=== PATIENT | male | born 1980 | race Caucasian/White ===

== ENCOUNTER 2024-06-06 10:34 | Emergency (ER) | payer OTHER ==
[2024-06-06 11:31] VITALS: RESP 18; BMI 34.0
[2024-06-06] MEDS ORDERED: MAG HYDROX/AL HYDROX/SIMETH 30 ML UNIT-DOSE CUP ONE (11:52)
[2024-06-06] MEDS ORDERED: FAMOTIDINE 20 MG TABLET ONE (11:52)
[2024-06-06] MEDS: FAMOTIDINE 20 MG TABLET PO ONE (12:09)
[2024-06-06] MEDS: MAG HYDROX/AL HYDROX/SIMETH 30 ML UNIT-DOSE CUP PO ONE (12:09)
[2024-06-06 12:27] LABS: BASO % 0.6 % (0-2.0); HEMATOCRIT 47.3 % (35.4-49); HEMOGLOBIN 16.4 GM/dL (11.7-16.9); MCH 30.6 pg (25.7-33.7); MCHC 34.7 g/dl (32.0-35.9); MEAN CELL VOLUME 88.1 fl (80-96); MEAN PLT VOLUME 10.4 fl (7.5-11.1); NEUT % 76.4 % (42.8-82.8); PLATELET COUNT 193 10^3/uL (134-434); RBC 5.37 M/mm3 (4.00-5.60); RDW 13.9 % (11.9-15.9); WHITE BLOOD COUNT 9.5 K/mm3 (4.0-10.0)
[2024-06-06 12:44] LABS: CHLORIDE 102 mmol/L (98-107); POTASSIUM 4.6 mmol/L (3.5-5.1); SODIUM 140 mmol/L (136-145)
[2024-06-06 12:46] LABS: CALCIUM 10.1 mg/dL (8.5-10.1)
[2024-06-06 12:47] LABS: ALBUMIN 4.7 g/dl (3.4-5.0); ANION GAP 13 mmol/L (4-13); BLOOD UREA NITROGEN 13.7 mg/dL (7-18); CO2 26 mmol/L (21-32); MAGNESIUM 2.2 mg/dL (1.8-2.4)
[2024-06-06 12:50] LABS: GLUCOSE,RANDOM 434 mg/dL (74-106); SGOT/AST 23 U/L (15-37); SGPT/ALT 64 U/L (13-61)
[2024-06-06 12:51] LABS: BILIRUBIN,TOTAL 1.4 mg/dL (0.2-1)
[2024-06-06 12:54] LABS: ALK PHOS 131 U/L (45-117)
[2024-06-06 13:42] LABS: HIV INTERPRETATION NEGATIVE (NEGATIVE)
[2024-06-06 13:58] LABS: VENOUS BASE EXCESS -2.8 mmol/L (-2-2); VENOUS O2 SATURATION 69.9 % (70-80); VENOUS PCO2 41.4 mmHg (38-52); VENOUS PH 7.355 (7.310-7.410)
[2024-06-06] MEDS: SODIUM CHLORIDE 0.9% 500 ML INFUS.BAG IV ONE (14:46)
[2024-06-06 15:50] VITALS: BP 128/84; PULSE 87; TEMP 98.4
== END 2024-06-06 15:50 | disposition home or self-care (01) ==
LOC: JER 10:34
DX: R73.9 Hyperglycemia, unspecified (principal); R11.2 Nausea with vomiting, unspecified; R19.7 Diarrhea, unspecified; R10.32 Left lower quadrant pain; R63.4 Abnormal weight loss
CPT/HCPCS: 36415; 74177-TC; 76705-TC; 80053; 82010; 82248; 82803; 82962; 83690; 83735; 85025; 86803; 87389; 93005; 93010; 99285-25; Q9967